=== PATIENT | female | born 1940 | race Caucasian/White ===

== ENCOUNTER → 2016-09-21 | Outpatient (CLI) | payer BC ==
[~2016-09-21] MED LIST: B-COTAB53; CALCTAB5 PO; CYAN500T PO; DOXY25TA19; HYDR12.55 PO; LSN20 PO; MELA1TAB5 PO; SIMV-150 PO; [UNRECOGNIZED DRUG - CODE]
--- NOTE | 2016-09-21 11:41 | DIAGNOSTIC IMAGING REPORT ---
RIGHT LOWER EXTREMITY VENOUS DOPPLER HISTORY: I82.491 Deep vein thrombosis of peroneal vein, right Right lower COMPARISON STUDY: None. FINDINGS: A few small linear echogenic foci within the mid right peroneal veins consistent with residual nonocclusive chronic thrombus. Otherwise, there is normal compressibility, flow, and augmentation within the remaining right lower extremity deep venous system. IMPRESSION: No acute DVT within the right lower extremity. Near complete resolution of the right peroneal vein thrombosis with only a small amount of linear nonocclusive chronic thrombus remaining. Electronically signed by: Waqar Tian M.D. 09/21/2016 11:39 AM Dictated Date/Time: 09/21/2016 11:37 AM
== END | disposition home or self-care (01) ==
LOC: C.ULTRBC 11:04
PROVIDERS: ATTEND Internal Medicine Geriatric Medicine
DX: I82.491 Acute embolism and thrombosis of other specified deep vein of right lower extremity (principal)

== ENCOUNTER → 2016-12-07 | Outpatient (CLI) | payer BC ==
[2016-12-07 17:07] LABS: ALT/SGPT 28 U/L (12-78); AST/SGOT 18 U/L (15-37); BLOOD UREA NITROGEN 13 mg/dl (7-18); BUN/CREATININE RATIO 15.9 (10-20); CALCIUM 9.9 mg/dl (8.5-10.1); CARBON DIOXIDE 36 mmol/L (21-32); CHLORIDE 100 mmol/L (98-107); CREATININE 0.82 mg/dl (0.60-1.20); GLUCOSE 104 mg/dl (70-99); POTASSIUM 3.4 mmol/L (3.5-5.1); SODIUM 139 mmol/L (136-145)
[2016-12-07 17:10] LABS: ALB/GLOB RATIO 1.1 (0.9-2); ALKALINE PHOSPHATASE 76 U/L (45-117)
--- NOTE | 2016-12-13 13:23 | CODING QUERY MEDICAL NECESSITY ---
SUPPORTING DIAGNOSIS NEEDED Dr. Bragg, A supporting diagnosis is required for the test/procedure performed on this patient in order for us to be reimbursed by the patient's insurance. Please provide a supporting diagnosis for the following test/procedure listed below next to the test name along with your signature. *If there is no additional diagnosis for this patient that would support the following test/procedure please document that below next to the test/procedure. Test(s)/Procedure(s) that require a supporting diagnosis: * ([id number]) VITAMIN D ASSAY DIAGNOSIS: DATE OF SERVICE: 12/07/16 Provider Signature: Date: Thank you Joshua Charles [facility] Information Management Once completed, please kindly fax back to [phone] For questions please call [phone]
== END | disposition home or self-care (01) ==
LOC: C.LABBC 14:59
PROVIDERS: ATTEND Family Medicine
DX: M79.662 Pain in left lower leg (principal); I10 Essential (primary) hypertension; M85.80 Other specified disorders of bone density and structure, unspecified site

== ENCOUNTER → 2016-12-08 | Outpatient (CLI) | payer BC ==
[~2016-12-08] MED LIST changes: +OPTIRAY 320 IV PRN
--- NOTE | 2016-12-08 15:29 | DIAGNOSTIC IMAGING REPORT ---
CT ANGIOGRAM OF THE CHEST CLINICAL HISTORY: DVT. Shortness of breath. COMPARISON STUDY: No previous studies for comparison. TECHNIQUE: Following the IV administration of 94 mL of Optiray-320, CT angiogram of the thorax was performed from the thoracic inlet to the lung bases utilizing the pulmonary embolus protocol. Images are reviewed in the axial, sagittal, and coronal planes. IV contrast was administered without complication. MIP imaging was performed. CT DOSE: 361.89 mGycm FINDINGS: No pathologically enlarged axillary mediastinal or hilar lymph nodes were visualized. There is dilatation of the ascending thoracic aorta which measures 42 mm. No dissection is visualized. There were no pulmonary artery filling defects to indicate acute pulmonary embolism. No pleural effusions are visualized. There are dependent atelectatic changes present. There is no pulmonary consolidation suspicious for pneumonia. There are hepatic hypodensities, likely representing cysts. The gallbladder surgically absent. IMPRESSION: 1. No evidence of acute pulmonary embolism 2. Dilatation of the ascending thoracic aorta which measures 42 mm 3. No evidence of focal pulmonary consolidation Electronically signed by: Shekhar Mondragon M.D. 12/08/2016 3:28 PM Dictated Date/Time: 12/08/2016 3:24 PM
== END | disposition home or self-care (01) ==
LOC: C.CTS 14:54
PROVIDERS: ATTEND Family Medicine
DX: I82.491 Acute embolism and thrombosis of other specified deep vein of right lower extremity (principal); M79.662 Pain in left lower leg; I77.810 Thoracic aortic ectasia

== ENCOUNTER → 2016-12-30 | Outpatient (CLI) | payer BC ==
[~2016-12-30] MED LIST changes: -OPTIRAY 320 IV PRN
--- NOTE | 2017-01-03 10:05 | CODING QUERY MEDICAL NECESSITY ---
CQSUPPORTING DIAGNOSIS NEEDED A supporting diagnosis is required for the test/procedure performed on this patient in order for us to be reimbursed by the patient's insurance. Please provide a supporting diagnosis for the following test/procedure listed below next to the test name along with your signature. *If there is no additional diagnosis for this patient that would support the following test/procedure please document that below next to the test/procedure. Test(s)/Procedure(s) that require a supporting diagnosis: DOS 12/30/16 [facility] OVERVIEW Provider Signature: Date: Thank you Jennifer Saucedo Health Information Management Once completed, please kindly fax back to [phone] For questions please call [phone]
[2017-01-03 23:40] LABS: ANTITHROMBINIII ACTIVITY** 117 % activity (80-120); LUPUS ANTICOAGULANT** TC36573X Negative (Negative); PROTEIN C ACTIVITY** TC 1777X 198 % (70-180); PROTEIN S ACT(FUNCT)**1779X 94 % (60-140)
== END | disposition home or self-care (01) ==
LOC: C.LAB 09:02
PROVIDERS: ATTEND Family Medicine
DX: I82.491 Acute embolism and thrombosis of other specified deep vein of right lower extremity (principal)

== ENCOUNTER → 2017-02-28 | Outpatient (CLI) | payer BC ==
[2017-02-28 11:21] LABS: URINE APPEARANCE CLEAR (CLEAR); URINE BILIRUBIN NEG (NEG); URINE COLOR YELLOW; URINE EPITHELIAL CELL AUTO 0-5 /lpf (0-5); URINE NITRITE NEG (NEG); URINE PH 7.5 (4.5-7.5); UROBILINOGEN NEG (NEG)
[2017-02-28 11:24] LABS: MANUAL MICROSCOPIC REQUIRED? NO; REVIEW REQ? NO
[2017-02-28 11:40] LABS: BLOOD UREA NITROGEN 12 mg/dl (7-18); CALCIUM 9.9 mg/dl (8.5-10.1); CARBON DIOXIDE 29 mmol/L (21-32); CHLORIDE 105 mmol/L (98-107); CREATININE 0.77 mg/dl (0.60-1.20); GLUCOSE 89 mg/dl (70-99); POTASSIUM 4.2 mmol/L (3.5-5.1); SODIUM 142 mmol/L (136-145)
== END | disposition home or self-care (01) ==
LOC: C.LABBC 09:01
PROVIDERS: ATTEND Physician Assistant Medical
DX: I10 Essential (primary) hypertension (principal); R35.0 Frequency of micturition

== ENCOUNTER → 2017-08-15 | Outpatient (CLI) | payer BC ==
--- NOTE | 2017-08-16 07:47 | MAMMOGRAPHY REPORT ---
BILATERAL DIGITAL SCREENING MAMMOGRAM WITH CAD: 08/15/2017 CLINICAL HISTORY: Routine screening examination. TECHNIQUE: Bilateral CC and MLO views were obtained. Current study was also evaluated with a Compute r Aided Detection (CAD) system. COMPARISON: Comparison is made to exams dated: 08/11/2016 mammogram, 08/06/2015 mammogram, 07/19/2014 mammogram, 04/25/2013 mammogram, 04/21/2012 mammogram, and 04/07/2011 mammogram - [facility] enter. BREAST COMPOSITION: There are scattered areas of fibroglandular density in both breasts. FINDINGS: There is a 4 x 2 mm nodular asymmetry in the inferior anterior left breast, only seen on t he MLO view, for which additional spot compression tomosynthesis views with possible ultrasound are r ecommended. No other suspicious mass, architectural distortion or cluster of microcalcifications is seen bilatera lly. IMPRESSION: ACR BI-RADS CATEGORY 0: INCOMPLETE EVALUATION: NEED ADDITIONAL IMAGING EVALUATION The 4 x 2 mm nodular asymmetry in the inferior, anterior left breast on the MLO view needs additional evaluation. The patient will be called to schedule an appointment. Approximately 10% of breast cancers are not detected with mammography. A negative mammographic report should not delay biopsy if a clinically suggestive mass is present. Pastora Nicholas M.D. ay/:08/15/2017 12:31:10 Individual Pension Consultant: Clare LOCKETT(R)(M), [facility] letter sent: Addl Imaging 0 BI-RADS Code: ACR BI-RADS Category 0: Incomplete Evaluation: Need Additional Imaging Evaluation
== END | disposition home or self-care (01) ==
LOC: C.MAMM 11:12
PROVIDERS: ATTEND Family Medicine
DX: Z12.31 Encounter for screening mammogram for malignant neoplasm of breast (principal); N64.89 Other specified disorders of breast

== ENCOUNTER → 2017-08-23 | Outpatient (CLI) | payer BC ==
--- NOTE | 2017-08-24 14:12 | MAMMOGRAPHY REPORT ---
UNILATERAL LEFT DIGITAL DIAGNOSTIC MAMMOGRAM TOMOSYNTHESIS AND TARGETED LEFT ULTRASOUND: 08/23/2017 CLINICAL HISTORY: Callback from screening mammography for a 4 x 2 mm nodular asymmetry in the inferio r left breast, best seen on the MLO view. TECHNIQUE: Spot compression left CC and MLO tomosynthesis images were obtained. COMPARISON: Comparison is made to exams dated: 08/15/2017 mammogram, 08/11/2016 mammogram, 08/06/2015 mammogram, 07/19/2014 mammogram, 04/25/2013 mammogram, and 04/21/2012 mammogram - [facility]. BREAST COMPOSITION: There are scattered areas of fibroglandular density in the left breast. FINDINGS: Spot compression tomosynthesis views of the left breast demonstrate a persistent low-densit y 4 x 2 x 3 mm circumscribed mass in the lower inner anterior left breast. It is superficial/subderm al in location. No associated architectural distortion or microcalcification. Further evaluation wi ultrasound was performed. Real-time high-resolution ultrasound was performed throughout the left lower inner quadrant. Sonogra phically normal fibroglandular tissue is seen without a discrete solid or cystic mass. IMPRESSION: ACR-BI-RADS CATEGORY 3: PROBABLY BENIGN, TARGETED ULTRASOUND ACR-BI-RADS CATEGORY 3: PRO BABLY BENIGN The 4 mm benign-appearing oval circumscribed mass in the subdermal lower inner left breast could repr esent a benign cyst or lymph node, although no sonographic correlate was identified for definitive ch aracterization. Therefore given the benign mammographic features, a short interval follow-up left di agnostic tomosynthesis mammogram and possible repeat ultrasound is recommended to ensure stability in 6 months. These results and recommendations were discussed with the patient at the time of the exam. Approximately 10% of breast cancers are not detected with mammography. A negative mammographic report should not delay biopsy if a clinically suggestive mass is present. Pastora Nicholas M.D. ay/:08/23/2017 14:18:40 Tenter Feeder: Nasrin LOCKETT(Darian)(Jl), [facility] letter sent: Follow Up Recommended 3 BI-RADS Code: ACR-BI-RADS Category 3: Probably Benign Ultrasound BI-RADS: ACR-BI-RADS Category 3: Pr obably Benign
== END | disposition home or self-care (01) ==
LOC: C.MAMM 13:20
PROVIDERS: ATTEND Family Medicine
DX: R92.8 Other abnormal and inconclusive findings on diagnostic imaging of breast (principal); N64.89 Other specified disorders of breast; N63.24 Unspecified lump in the left breast, lower inner quadrant

== ENCOUNTER → 2017-09-09 | Outpatient (CLI) | payer BC ==
[~2017-09-09] MED LIST changes: +LISI-726 PO; -LSN20 PO
--- NOTE | 2017-09-09 14:40 | DIAGNOSTIC IMAGING REPORT ---
VENOUS DOPP LOWER EXT UNILAT CLINICAL HISTORY: 77 years-old Female presenting with R LOWER CALF PAIN, HX DVT'S. TECHNIQUE: Real-time grayscale and color and spectral Doppler ultrasound imaging of the veins of the right lower extremity was performed. Compression and augmentation were also utilized. COMPARISON: 09/21/2016. FINDINGS: Right: Common femoral vein: Patent. Greater saphenous vein: Patent. Deep femoral vein: Patent. Femoral vein: Patent. Popliteal vein: Patent. Calf veins: Filling defects consistent with thrombus in the duplicated peroneal veins. Posterior tibial veins grossly patent. Other: None. 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 Remaining proximal veins are patent. The report will be called/faxed according to standard departmental protocol. Electronically signed by: Renato Felipe M.D. 09/09/2017 2:39 PM Dictated Date/Time: 09/09/2017 2:37 PM
== END | disposition home or self-care (01) ==
LOC: C.ULTR 13:53
PROVIDERS: ATTEND Family Medicine
DX: M75.42 Impingement syndrome of left shoulder (principal); I82.491 Acute embolism and thrombosis of other specified deep vein of right lower extremity

== ENCOUNTER → 2018-01-12 | Outpatient (CLI) | payer BC ==
[~2018-01-12] MED LIST changes: -LISI-726 PO; +LSN20 PO
--- NOTE | 2018-01-12 13:13 | DIAGNOSTIC IMAGING REPORT ---
ULTRASOUND R VENOUS DOPP LOWER EXT UNILAT CLINICAL HISTORY: R25.2 RIGHT LEG PAIN AND SWELLING COMPARISON STUDY: 06/10/2016 FINDINGS: Real-time and color flow Doppler imaging were performed. Flow was seen within the femoral, popliteal and calf veins with no intraluminal thrombus demonstrated. The saphenous vein is patent. IMPRESSION: No evidence of deep venous thrombosis. Electronically signed by: Shekhar Mondragon M.D. 01/12/2018 1:11 PM Dictated Date/Time: 01/12/2018 1:11 PM
== END | disposition home or self-care (01) ==
LOC: C.ULTR 12:14
PROVIDERS: ATTEND Family Medicine
DX: R25.2 Cramp and spasm (principal)